=== PATIENT | female | born 1955 | race African-American/Black ===

== ENCOUNTER → 2017-09-03 09:58 | Outpatient (CLI) | payer OTHER, SELFPAY ==
[2017-09-03 10:40] LABS: Absolute Lymphocyte Count 2.36 X10^3/ul (0.83-4.51); Basophil# 0.05 X10^3/uL; Hematocrit 45.8 % (37-47); Hemoglobin 15.5 g/dl (12.0-15.0); Lymphocyte # 2.36 X10^3/ul (4.0); Lymphocyte % 48.4 % (19-41); Mean Corp Hgb Conc 33.8 g/gl (32-36); Mean Corpuscular Hgb 31.2 pg (27.0-32.0); Mean Corpuscular Volume 92.2 fL (81-99); Mean Platelet Vol. 10.7 fl (6.2-12.0); Monocyte# 0.39 X10^3/uL; Neutrophil # 1.97 X10^3/uL (2.7-7.7); Neutrophil % 40.4 % (47-70); Platelet Count 223 K/mm3 (150-450); RBC Distribution Width CV 12.7 % (11.6-14.6); RBC Distribution Width SD 42.2 fl (35.1-43.9); Red Blood Count 4.97 M/mm3 (4.2-5.4); White Blood Count 4.9 K/mm3 (4.4-11.0)
[2017-09-03 10:41] LABS: POSITIVE COUNT NO; POSITIVE DIFFERENTIAL NO; POSITIVE MORPHOLOGY NO
[2017-09-03 10:51] LABS: International Normalized Ratio 1.1; Prothrombin Time (Protime)PT. 13.4 SECONDS (11.7-14.9)
[2017-09-03 10:54] LABS: Anion Gap 6 (5-15); BUN 8 mg/dL (7-18); BUN/Creat Ratio 12.8 RATIO (10-20); Chloride 110 mmol/L (98-107); Creatinine, Serum 0.63 mg/dL (0.55-1.02); EST Glomerular Filtration Rate 103 mL/min (>60); Est Glom Filt Rate - Afr Amer 125 mL/min (>60); Glucose 99 mg/dL (74-106); Potassium 3.6 mmol/L (3.5-5.1); Sodium Level 140 mmol/L (136-145)
== END ==
PROVIDERS: Family Provider Family Medicine; PCP Family Medicine; Visit Provider Internal Medicine Hematology & Oncology
DX: C50.312 Malignant neoplasm of lower-inner quadrant of left female breast (principal); Z17.1 Estrogen receptor negative status [ER-]
CPT/HCPCS: 36415; 80048; 85025; 85610

== ENCOUNTER → 2023-11-01 | Outpatient (CLI) | payer MEDICARE, SELFPAY ==
--- NOTE | 2023-11-01 07:53 | VDUE_ITS ---
Reason For Study: edema Right Proximal Left Proximal Right jugular vein is spontaneous, widely Left jugular vein is spontaneous, widely patent, phasic, with no intraluminal patent, phasic, with no intraluminal echogenicity noted. echogenicity noted. Right subclavian vein is spontaneous, widely Left subclavian vein is spontaneous, widely patent, phasic, with no intraluminal patent, phasic, with no intraluminal echogenicity noted. echogenicity noted. Right Lower Arm Left Arm Right radial vein is compressible. Left axillary vein is spontaneous, patent, Right ulnar vein is compressible. phasic, competent, compressible and Right Arm demonstrates augmentation. Right axillary vein is spontaneous, patent, Left brachial vein is compressible. phasic, competent, compressible and Left cephalic vein is compressible. demonstrates augmentation. Left basilic vein is compressible. Right brachial vein is compressible. Left Lower Arm Right cephalic vein is compressible. Left radial vein is compressible. Right basilic vein is compressible. Left ulnar vein is compressible. Prelim to Dr. Drew. VL/Venous Duplex US - [facility] Extrem Interpretation Summary Deep veins of the upper extremities are bilaterally patent and compressible seg mentally. There is no evidence of deep vein thrombosis on either side. The superficial veins of the u pper extremities, the basilic and cephalic veins, are patent and compressible bilaterally. There is n o evidence of upper extremity superficial thrombophlebitis in the upper extremities bilaterally inv olving the veins imaged. Ordering Physician: Adal Drew Referring Physician: Adal Drew Performed By: Alli Colindres RVT ???
== END | disposition home or self-care (01) ==
LOC: CVS 07:52
PROVIDERS: PCP Family Medicine; Referring Provider Family Medicine; Visit Provider Family Medicine
DX: R60.0 Localized edema (principal)
CPT/HCPCS: 93970